=== PATIENT | female | born 1960 | race Caucasian/White ===

== ENCOUNTER 2019-10-13 22:39 | Emergency (ER) | payer OTHER ==
[~2019-10-13] VITALS: Ht 160 cm; Wt 75.0 kg
--- NOTE | 2019-10-13 22:39 | NUR ---
2237- MED FLIGHT CONTACTED FOR URGENT FLIGHT. 224- MED FLIGHT DECLINED. 2244- SHIFT CAPTAIN NOTIFIED OF FORSEABLE NEED FOR GROUND TRANSPORT 2239-DR MOSS IN ED
--- NOTE | 2019-10-13 23:00 | NUR ---
ÁLVARO SPLINT APPLIED TO BILATE LE, PULSES RESTORED BILATER PER DR. MOSS
[2019-10-13 23:15] LABS: HEMOGLOBIN 10.6 G/DL (11.5-16.0); MEAN PLATELET VOLUME 9.7 FL (7.4-10.4); RED CELL DISTRIBUTION WIDTH 13.8 % (10.0-14.5); WHITE BLOOD COUNT 14.5 10^3/uL (4.3-11.0)
[2019-10-13] MEDS ORDERED: MIDAZOLAM 2 MG/2 ML (VERSED) VIAL ONE (23:19)
[2019-10-13] MEDS ORDERED: fentaNYL INJECTION 100 MCG/2 ML AMP ONE (23:19)
[2019-10-13 23:21] LABS: ALBUMIN 3.7 GM/DL (3.2-4.5); CHLORIDE 108 MMOL/L (98-107); SODIUM 141 MMOL/L (135-145)
[2019-10-13 23:21] LABS: BILIRUBIN,URINE NEGATIVE (NEGATIVE); CLARITY,URINE SL CLOUDY; COLOR,URINE YELLOW; GLUCOSE, URINE (UA) NEGATIVE (NEGATIVE); KETONES,URINE NEGATIVE (NEGATIVE); LEUKOCYTE ESTERASE ,URINE NEGATIVE (NEGATIVE); NITRITE,URINE NEGATIVE (NEGATIVE); PH,URINE 7.5 (5-9); PROTEIN,URINE 2+ (NEGATIVE)
[2019-10-13 23:22] LABS: CALCIUM 7.9 MG/DL (8.5-10.1)
[2019-10-13 23:23] LABS: TRIGLYCERIDES 150 MG/DL (<150); VLDL CHOLESTEROL 30 MG/DL (5-40)
[2019-10-13 23:24] LABS: GLUCOSE 119 MG/DL (70-105); TOTAL PROTEIN 6.1 GM/DL (6.4-8.2)
[2019-10-13 23:25] LABS: BILIRUBIN,TOTAL 0.3 MG/DL (0.1-1.0); CARBON DIOXIDE 22 MMOL/L (21-32)
[2019-10-13 23:27] LABS: ALKALINE PHOSPHATASE 137 U/L (40-136); CREATININE SERUM 0.76 MG/DL (0.60-1.30); GFR ESTIMATED > 60; PHOSPHORUS 3.7 MG/DL (2.3-4.7)
[2019-10-13 23:28] LABS: CHOLESTEROL 114 MG/DL (< 200)
[2019-10-13 23:29] LABS: BILIRUBIN,DIRECT 0.2 MG/DL (0.0-0.3); BILIRUBIN,INDIRECT 0.1 MG/DL; BUN/CREATININE RATIO 16
[2019-10-13 23:30] LABS: ALANINE AMINOTRANSFERASE 713 U/L (0-55); HDL CHOLESTEROL 43 MG/DL (40-60); MAGNESIUM 2.3 MG/DL (1.6-2.4)
[2019-10-13 23:31] LABS: CREATINE KINASE 547 U/L (29-168)
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
[2019-10-13 23:34] LABS: FIBRIN DEGRADATION PRODUCTS 17.49 UG/ML (0.00-0.49)
[2019-10-13 23:36] LABS: BACTERIA,URINE MODERATE /HPF; SQUAMOUS EPITHELIAL CELL,UR 0-2 /HPF
[2019-10-13 23:49] LABS: AMPHETAMINE SCREEN, URINE NEGATIVE (NEGATIVE); BARBITURATE SCREEN URINE NEGATIVE (NEGATIVE); BENZODIAZEPINES SCREEN URINE NEGATIVE (NEGATIVE); CANNABINOID SCREEN, URINE NEGATIVE (NEGATIVE); COCAINE SCREEN URINE NEGATIVE (NEGATIVE); METHADONE STAT NEGATIVE (NEGATIVE); METHAMPHETAMINE SCREEN URINE S NEGATIVE (NEGATIVE); OPIATE SCREEN URINE NEGATIVE (NEGATIVE); OXYCODONE STAT NEGATIVE (NEGATIVE); TRICYCLIC ANTIDEPRESSANTS SCRE NEGATIVE (NEGATIVE)
[2019-10-13 23:50] LABS: PROPOXYPHENE STAT NEGATIVE (NEGATIVE)
--- NOTE | 2019-10-13 23:53 | NUR ---
18GA INSERTED IN R AC BY JAMES. RAY.
[2019-10-14] MEDS ORDERED: NS IV 1000 ML 1,000 ML ONE (00:18)
[2019-10-14] MEDS ORDERED: fentaNYL INJECTION 100 MCG/2 ML AMP ONE (00:24)
[2019-10-14] MEDS ORDERED: MIDAZOLAM 2 MG/2 ML (VERSED) VIAL ONE ×2 (00:24→01:52)
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
--- NOTE | 2019-10-14 00:27 | NUR ---
PT RETURNS FROM CT DEPT.
[2019-10-14] MEDS ORDERED: PROPOFOL DRIP (ICU) 100 ML IV ONE ×2 (00:28→03:01)
--- NOTE | 2019-10-14 00:31 | NUR ---
50MCG OF FENTANYL AND 2MG OF VERSED GIVEN IV
--- NOTE | 2019-10-14 00:42 | NUR ---
WARM LR GIVEN PER DR. OLIVERA. THREE LITERS OF EMS INITIATED FLUID INFUSED
--- NOTE | 2019-10-14 00:42 | NUR ---
0042- LITER OF LR INITIATED PER DR. OLIVERA D/T PT BEING HYPOTENSIVE. 0045-DIPRAVAN DRIP INITIATED AT 4MG/KG 0102- LEVOPHED DRIP INITIATED AT 0.4MG/KG 0128- FIRST UNIT OF BLOOD TRANSFUSED. PT INITIATED ON MASSIVE TRANSFUSION PROTOCOL PER DR OLIVERA. 0159- 2 VERSED GIVEN FOR SEDATION PER DR. OLIVERA 0253- TXA BOLUS GIVEN
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
[2019-10-14] MEDS ORDERED: NOREPINEPHRINE 4 MG/250 ML 250 ML IV ONE (00:57)
--- NOTE | 2019-10-14 01:00 | NUR ---
18GA IN R AC FOULED, SITE DC'D
[2019-10-14] MEDS ORDERED: HOLD METFORMIN - RECEIVED CONTRAST 20 ML VIAL IV SCH (01:15)
[2019-10-14] MEDS ORDERED: NS 100 ML (IVPB) BAG IV ONE (01:15)
[2019-10-14] MEDS ORDERED: NOREPINEPHRINE 4 MG/250 ML 250 ML IV SCH ×3 (01:15→04:45)
[2019-10-14] MEDS ORDERED: IOHEXOL 350 MG/ML 100 ML (OMNIPAQUE 350) VIAL IV ONE (01:15)
--- NOTE | 2019-10-14 01:18 | NUR ---
SECOND UNIT OF BLOOD INITIATED AT 0118. TRANFUSION COMPLETED AT 0140.
[2019-10-14 01:20] VITALS: BP 119/107
[2019-10-14 01:39] LABS: HEMOGLOBIN 7.5 G/DL (11.5-16.0); MEAN PLATELET VOLUME 9.7 FL (7.4-10.4); RED CELL DISTRIBUTION WIDTH 15.4 % (10.0-14.5); WHITE BLOOD COUNT 18.1 10^3/uL (4.3-11.0)
--- NOTE | 2019-10-14 01:40 | NUR ---
MASSIVE TRANSFUSION INITIATED. LAB CONTACTED, FFP UNITS TO BEGIN THAWING. UNIT [id number] RBC INFUSING AT THIS TIME. 021- LAB RELEASES TWO ADDITIONAL UNITS OF BLOOD AND FOUR UNITS OF FFP TO THIS NURSE. UNIT [id number] AND [id number] OF RBC INFUSED RAPIDLY. FFP UNITS [id number] AND [id number] INFUSED RAPIDLY EMS STAFF SENT WITH TWO ADDITIONAL UNITS OF FFP TO BE INFUSED DURING TRANSIT. Addendum: 10/18/19 at 1225 by [email or web address] MASSIVE TRANSFUSION INITIATED. LAB CONTACTED, FFP UNITS TO BEGIN THAWING. UNIT [id number] RBC INFUSING AT THIS TIME. 0218- LAB RELEASES TWO ADDITIONAL UNITS OF BLOOD AND FOUR UNITS OF FFP TO THIS NURSE. UNIT [id number] AND [id number] OF RBC INFUSED RAPIDLY. FFP UNITS [id number] AND [id number] INFUSED RAPIDLY EMS STAFF SENT WITH TWO LAST UNITS OF FFP TO BE INFUSED DURING TRANSIT.
[2019-10-14 01:41] VITALS: BP 76/41
[2019-10-14] MEDS ORDERED: NS IV 500 ML 500 ML IV SCH (01:45)
[2019-10-14] MEDS ORDERED: TRANEXAMIC ACID 100 MG/ML 10 ML INJECTION IV ONE ×2 (02:36→02:38)
[2019-10-14] MEDS ORDERED: NS (IVPB) 250 ML ONE (02:37)
[2019-10-14] MEDS ORDERED: NS (IVPB) 50 ML ONE (02:37)
[2019-10-14] MEDS ORDERED: TRANEXAMIC ACID IV ONE (02:45)
[2019-10-14] MEDS ORDERED: NS IV ONE (02:45)
[2019-10-14 03:18] VITALS: BP 105/67
[2019-10-14] MEDS ORDERED: TRANEXAMIC ACID INJECTION 1,000 MG in NS (IVPB) 250 ML IV SCH (04:45)
[2019-10-14] MEDS ORDERED: TRANEXAMIC ACID INJECTION 1,000 MG in NS (IVPB) 100 ML IV ONE (04:45)
[2019-10-14] MEDS ORDERED: PROPOFOL DRIP (ICU) 100 ML IV SCH (04:45)
[2019-10-14] MEDS ORDERED: MIDAZOLAM 2 MG/2 ML (VERSED) VIAL IVP ONE (04:45)
[2019-10-14] MEDS ORDERED: fentaNYL INJECTION 100 MCG/2 ML AMP IVP PRN (06:15)
[2019-10-14] MEDS ORDERED: LACTATED RINGERS 2,000 ML IV ONE (06:40)
[2019-10-14] MEDS ORDERED: NS IV 1000 ML 2,000 ML ONE (06:40)
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
== END 2019-10-14 03:20 | disposition short-term general hospital (02) ==
LOC: ER 22:47 → EDBD 22:47 → ER 10-14 03:20
DX: S72.91XB Unspecified fracture of right femur, initial encounter for open fracture type I or II (principal); S82.201B Unspecified fracture of shaft of right tibia, initial encounter for open fracture type I or II; S82.401B Unspecified fracture of shaft of right fibula, initial encounter for open fracture type I or II; S21.109A Unspecified open wound of unspecified front wall of thorax without penetration into thoracic cavity, initial encounter; S31.119A Laceration without foreign body of abdominal wall, unspecified quadrant without penetration into peritoneal cavity, initial encounter; S41.111A Laceration without foreign body of right upper arm, initial encounter; R40.2112 Coma scale, eyes open, never, at arrival to emergency department; R40.2212 Coma scale, best verbal response, none, at arrival to emergency department; R40.2312 Coma scale, best motor response, none, at arrival to emergency department; V63.6XXA Passenger in heavy transport vehicle injured in collision with car, pick-up truck or van in traffic accident, initial encounter; Y92.411 Interstate highway as the place of occurrence of the external cause
CPT/HCPCS: 36415; 36680; 70450; 70486; 71045; 71260; 72125; 72128; 72131; 74177; 80048; 80061; 80076; 80306; 80320; 81000; 82550; 83605; 83735; 83874; 84100; 84478; 84484; 84703; 85027; 85379; 85384; 85610; 85730; 86850; 86900; 86901; 86920; 87088; 93005; 96361; 96365; 96366; 96367; 96375; 99291; 99292